=== PATIENT | female | born 2000 | race African-American/Black ===

== ENCOUNTER 2022-04-07 08:55 | Emergency (ER) | payer SELFPAY ==
[2022-04-07 09:18] VITALS: BP 109/70; PULSE 133; RESP 20; TEMP 100.9; BMI 26.6
[2022-04-07] MEDS ORDERED: IBUPROFEN 600 MG TABLET (FP) PO ONE ×2 (09:29→10:35)
[2022-04-07] MEDS ORDERED: DEXAMETHASONE 4 MG TABLET (FP) PO ONE (09:30)
[2022-04-07] MEDS ORDERED: DEXAMETHASONE SOD PHOSPHATE 10 MG/1 ML VIAL ONE (10:34)
== END 2022-04-07 13:22 | disposition home or self-care (01) ==
LOC: JER 08:55
DX: J02.9 Acute pharyngitis, unspecified (principal)
CPT/HCPCS: 0241U-QW; 70491-TC; 84703; 87070; 99285-25; Q9967